=== PATIENT | female | born 1965 | race Caucasian/White ===

== ENCOUNTER → 2020-01-02 | Outpatient (CLI) | payer OTHER ==
[~2020-01-02] VITALS: Ht 157.5 cm; Wt 91.6 kg
[~2020-01-02] MED LIST: AEROSOL THERAPY1 DEV; AMBIEN 10MG10 MG PO; PERCOCET 325 MG1 TA2 PO; PHENERGAN 25 TA25 MG PO; RT ADVAIR 128 DISKUS IH; SINGULAIR 110 MG/TAB PO; TOPROL XL 25MG25 MG PO; VENTOLIN0.09 MG IH; ZYRTEC 10MG10 MG PO
[2020-01-02 12:41] VITALS: BP 170/84; PULSE 64
== END ==
LOC: LIGHT 11-07 14:11
DX: Z68.36 Body mass index [BMI] 36.0-36.9, adult (principal); M54.5 Low back pain
CPT/HCPCS: G0463